=== PATIENT | male | born 1945 | race Caucasian/White ===

== ENCOUNTER 2018-04-02 11:21 | Inpatient (IN) | payer MEDICARE ==
[~2018-04-02] VITALS: Ht 177.8 cm; Wt 79.4 kg
[2018-04-02] VITALS (10 sets, daily range): BP systolic 99–150; BP diastolic 65–101
[2018-04-02] MEDS ORDERED: ASPIRIN 81 MG TAB.CHEW PO ONE (11:30)
--- NOTE | 2018-04-02 11:34 | PHYS DOC ---
Adult General Chief Complaint Chief Complaint: RAPID HEART RATE HPI HPI Patient is a very pleasant 72-year-old male who presents from Dr. Schneider's office for tachycardia. The patient presented for a medication refill and to establish care with Dr. Schneider. He mentioned that he has a history of hyperlipidemia, hypertension, CABG 3, CAD, and reports he is a smoker. In the office it was noted the patient was quite tachycardic and an EKG was performed which showed a heart rate in the 150s. The patient's only complaint at this time is weakness which is generalized. He specifically denies chest pain, shortness of breath, back or abdominal pain, nausea or vomiting, diaphoresis, dizziness or syncope. He is alert and oriented 4, calm, and appears to be no distress at this time. His heart rate is fluctuating between 130 and 170 once on the monitor, and it is noted to be irregular. He takes Toprol, atorvastatin, and aspirin daily. Review of Systems Review of Systems Constitutional: Denies fever or chills [] +generalized weakness Eyes: Denies change in visual acuity, redness, or eye pain [] HENT: Denies nasal congestion or sore throat [] Respiratory: Denies cough or shortness of breath [] Cardiovascular: No additional information not addressed in HPI [] +tachycardia GI: Denies abdominal pain, nausea, vomiting, bloody stools or diarrhea [] : Denies dysuria or hematuria [] Musculoskeletal: Denies back pain or joint pain [] Integument: Denies rash or skin lesions [] Neurologic: Denies headache, focal weakness or sensory changes [] Endocrine: Denies polyuria or polydipsia [] All other systems were reviewed and found to be within normal limits, except as documented in this note. Physical Exam Physical Exam Constitutional: Well developed, well nourished, no acute distress, non-toxic appearance. [] HENT: Normocephalic, atraumatic, bilateral external ears normal, oropharynx moist, no oral exudates, nose normal. [] Eyes: PERRLA, EOMI, conjunctiva normal, no discharge. [] Neck: Normal range of motion, no tenderness, supple, no stridor. [] Cardiovascular: no murmur [] +tachycardia - irregularly irregular Lungs & Thorax: Bilateral breath sounds clear to auscultation [] Abdomen: Bowel sounds normal, soft, no tenderness, no masses, no pulsatile masses. [] Skin: Warm, dry, no erythema, no rash. [] Back: No tenderness, no CVA tenderness. [] Extremities: No tenderness, no cyanosis, no clubbing, ROM intact, no edema. [] Neurologic: Alert and oriented X 3, normal motor function, normal sensory function, no focal deficits noted. [] Psychologic: Affect normal, judgement normal, mood normal. [] Current Patient Data Vital Signs Vital Signs Date Time Temp Pulse Resp B/P (MAP) Pulse Ox O2 Delivery O2 Flow Rate FiO2 04/02/18 11:29 98.1 158 18 96 Room Air EKG EKG Atrial flutter vs fibrillation with rapid ventricular response, rate of 160, right bundle branch block is present, normal axis, no acute ischemic findings, no STEMI Radiology/Procedures Radiology/Procedures CXR (prelim): sternotomy wires, no acute cardiopulmonary process Course & Med Decision Making Course & Med Decision Making Pertinent Labs and Imaging studies reviewed. (See chart for details) Laboratory Tests Test 04/02/18 11:30 White Blood Count 11.2 x10^3/uL Red Blood Count 5.82 x10^6/uL Hemoglobin 18.0 g/dL Hematocrit 54.6 % Mean Corpuscular Volume 94 fL Mean Corpuscular Hemoglobin 31 pg Mean Corpuscular Hemoglobin Concent 33 g/dL Red Cell Distribution Width 14.3 % Platelet Count 334 x10^3/uL Neutrophils (%) (Auto) 51 % Lymphocytes (%) (Auto) 38 % Monocytes (%) (Auto) 10 % Eosinophils (%) (Auto) 1 % Basophils (%) (Auto) 1 % Neutrophils # (Auto) 5.7 x10^3uL Lymphocytes # (Auto) 4.3 x10^3/uL Monocytes # (Auto) 1.1 x10^3/uL Eosinophils # (Auto) 0.1 x10^3/uL Basophils # (Auto) 0.1 x10^3/uL Sodium Level 139 mmol/L Potassium Level 4.3 mmol/L Chloride Level 101 mmol/L Carbon Dioxide Level 32 mmol/L Anion Gap 6 Blood Urea Nitrogen 18 mg/dL Creatinine 1.2 mg/dL Estimated GFR (Cockcroft-Gault) 59.9 BUN/Creatinine Ratio 15 Glucose Level 85 mg/dL Calcium Level 9.2 mg/dL Magnesium Level 2.1 mg/dL Total Bilirubin 0.6 mg/dL Aspartate Amino Transf (AST/SGOT) 23 U/L Alanine Aminotransferase (ALT/SGPT) 26 U/L Alkaline Phosphatase 81 U/L Creatine Kinase 83 U/L Creatine Kinase MB (Mass) 0.9 ng/mL Creatine Kinase MB Relative Index 1.1 % Troponin I Quantitative < 0.017 ng/mL JQ-Sbs-M-Type Natriuretic Peptide 271 pg/mL Total Protein 7.6 g/dL Albumin 3.6 g/dL Albumin/Globulin Ratio 0.9 Current Medications Medications (Trade) Dose Ordered Sig/Rhoda Route PRN Reason Start Time Stop Time Status Last Admin Dose Admin Diltiazem HCl (Cardizem) 15 mg 1X ONCE IVP 04/02/18 11:30 04/02/18 11:31 UNV Aspirin (Children'S Aspirin) 324 mg 1X ONCE PO 04/02/18 11:30 04/02/18 11:30 DC @1202 - Cardizem significantly slow the patient down however his heart rate is still fluctuating between 105 and 125. Cardizem drip ordered. Explained atrial fibrillation at length to the patient and the concerns associated with it. The patient is not symptomatic so it is difficult to ascertain exactly when his atrial fibrillation began. As a result the pt will need an echocardiogram. He prefers to go home but after discussion is willing to be admitted here. Dr. Welsh accepts the ICU admission and agrees with Cardizem gtt and echo. Dragon Disclaimer Dragon Disclaimer This electronic medical record was generated, in whole or in part, using a voice recognition dictation system. Critical Care Time Critical care time was 35 minutes exclusive of procedures. Cardizem bolus and gtt for tachycardia, atrial fib vs flutter Departure Departure: Impression: Primary Impression: Atrial flutter with rapid ventricular response Additional Impression: Hx of CABG Disposition: ADMITTED INPATIENT Admitting Physician: Cyndi Welsh Condition: GUARDED Referrals: NO SCHNEIDER DO (PCP) Problem Qualifiers LILIANA BONILLA DO Apr 02, 2018 11:34
[2018-04-02 11:45] LABS: BASO # 0.1 x10^3/uL (0.0-0.2); BASO % 1 % (0-3); EOS # 0.1 x10^3/uL (0.0-0.7); EOS % 1 % (0-3); HEMATOCRIT 54.6 % (39.0-53.0); LYMPH # 4.3 x10^3/uL (1.0-4.8); LYMPH % 38 % (24-48); MEAN CORPUSCULAR HEMOGLOBIN 31 pg (25-35); MEAN CORPUSCULAR HGB CONC 33 g/dL (31-37); MEAN CORPUSCULAR VOLUME 94 fL (79-100); MONO # 1.1 x10^3/uL (0.0-1.1); MONO % 10 % (0-9); NEUT # 5.7 x10^3uL (1.8-7.7); NEUT % 51 % (31-73); PLATELET COUNT 334 x10^3/uL (140-400); RED BLOOD COUNT 5.82 x10^6/uL (4.30-5.70); RED CELL DISTRIBUTION WIDTH 14.3 % (11.5-14.5); WHITE BLOOD COUNT 11.2 x10^3/uL (4.0-11.0)
[2018-04-02] MEDS ORDERED: dilTIAZem 25 MG/5 ML VIAL IVP ONE (12:00)
[2018-04-02 12:05] LABS: ALBUMIN 3.6 g/dL (3.4-5.0); ALBUMIN/GLOBULIN RATIO 0.9 (1.0-1.7); CALCIUM 9.2 mg/dL (8.5-10.1); CREATININE 1.2 mg/dL (0.7-1.3); GFR 59.9; MAGNESIUM 2.1 mg/dL (1.8-2.4); POTASSIUM 4.3 mmol/L (3.5-5.1); TOTAL BILIRUBIN 0.6 mg/dL (0.2-1.0); TOTAL PROTEIN 7.6 g/dL (6.4-8.2)
--- NOTE | 2018-04-02 12:12 | RAD ---
INDICATION: Tachycardia, weakness. TECHNIQUE: AP upright portable chest radiograph was obtained. No comparison is available. FINDINGS: There is mild left basilar atelectasis and or infiltrate. The lungs otherwise are clear. The heart is not enlarged and there is no heart failure. There are median sternotomy wires. Leads overlie the patient. IMPRESSION: Mild left basilar atelectasis and or infiltrate. Electronically signed by: Stuart Pierson MD (04/02/2018 12:09 PM) [facility]
[2018-04-02] MEDS ORDERED: IV DEXTROSE 5% 100 ML IV ONE (12:24)
[2018-04-02] MEDS ORDERED: dilTIAZem VIAL 125 MG in IV DEXTROSE 5% 100 ML IV PRN (12:30)
[2018-04-02] MEDS ORDERED: ATOR20TA58 PO (13:56)
[2018-04-02] MEDS ORDERED: METO-239 PO (13:56)
[2018-04-02] MEDS ORDERED: ASPI-630 PO (13:56)
[2018-04-02] MEDS ORDERED: DIGOXIN IV 500 MCG/2 ML AMPUL. IV ONE (15:00)
--- NOTE | 2018-04-02 15:21 | EKG ---
[address] [address] Test Date: 2018-04-02 Test Time: 11:36:07 Pat Name: ODELL SMITH Department: Room: Gender: M [employer] Attendant: JESUS ALBERTO : 1945 Requested By: LILIANA BONILLA Order Number: [id number] Reading MD: Measurements Intervals Chana Rate: 160 P: [place]: QRS: -65 QRSD: 120 T: -7 QT: 280 QTc: 459 Interpretive Statements IRREGULAR RHYTHM, NO P-WAVE FOUND ABNORMAL LEFT AXIS DEVIATION R-S TRANSITION ZONE IN V LEADS DISPLACED TO THE RIGHT RVH WITH REPOLARIZATION ABNORMALITY QRS(T) CONTOUR ABNORMALITY CONSIDER ANTEROLATERAL MYOCARDIAL DAMAGE CONSISTENT WITH INFERIOR INFARCT AGE UNDETERMINED ABNORMAL ECG RI6.01 No previous ECG available for comparison
--- NOTE | 2018-04-02 16:55 | CONS ---
DATE OF CONSULTATION: 04/02/2018 REASON FOR CONSULTATION: Atrial fibrillation. HISTORY OF PRESENT ILLNESS: The patient is a 72-year-old man with past medical history as noted below, who apparently was in his usual state of health and presented to the outpatient office for a refill of his medications and was noted to be in significant tachycardia with a heart rate approximately 150 and with an EKG demonstrating atrial fibrillation with RVR. Therefore, he was directed to the ER. In speaking with the patient, he reports over the course of the last 2-3 years, he has had significant fatigue, but no obvious limitations to his lifestyle activity overall. He is retired, mostly has a sedentary lifestyle. Of note, he recently lost his brother approximately 10 days ago. He denies any syncope, orthopnea, PND or lower extremity edema. No palpitations to note. Since admission to the hospital, he has been given diltiazem drip and digoxin IV push bolus and his heart rate has been maintained in the low 90s to low 110s. PAST MEDICAL HISTORY: 1. Coronary artery disease, status post CABG x 3 approximately 20 years ago. 2. Minimal hypertension. 3. Mild dyslipidemia. FAMILY HISTORY: Notable for prior history of DVT and renal failure and arrhythmias requiring pacemakers. SOCIAL HISTORY: The patient is a current smoker. He lives with his . He is retired as noted above. ALLERGIES: CODEINE. CURRENT CARDIAC MEDICATIONS: 1. Toprol-XL 25 mg daily. 2. Aspirin 81 mg daily. 3. Atorvastatin 20 mg daily. REVIEW OF SYSTEMS: Negative for 10 out of 14 systems reviewed, unless otherwise mentioned above in HPI. PHYSICAL EXAMINATION: VITAL SIGNS: Afebrile, respiratory rate 16, pulse 119, blood pressure 129/74, 100% on nasal cannula at 2 liters. GENERAL: He is alert and oriented, no acute distress. HEAD AND NECK: Unremarkable. CARDIAC: Irregularly irregular without any murmurs, rubs or gallops. LUNGS: With mildly decreased breath sounds bilaterally. ABDOMEN: Soft, nontender, nondistended. EXTREMITIES: Without any clubbing, cyanosis or edema. NEUROLOGIC: No focal deficits. MUSCULOSKELETAL: No trauma. DIAGNOSTIC STUDIES: Hemoglobin is 18.0 consistent with smoking, platelets 334, creatinine 1.2, troponin less than 0.017. BNP is only minimally elevated at 271. Chest x-ray demonstrates no acute pathology. Echocardiogram is currently pending. EKG demonstrates atrial fibrillation with RVR with a heart rate of approximately 130. There is a right bundle branch block. IMPRESSION: 1. Presumed new onset cardiomyopathy, although given his time on his symptoms, this could be a fairly longstanding for several months. 2. Coronary artery disease, status post coronary artery bypass graft, currently without angina. 3. Minimal hypertension. 4. Dyslipidemia. RECOMMENDATIONS: 1. I discussed with the patient the pathophysiology of atrial fibrillation and various options of treatment including cardioversion versus medical management. He wishes to pursue medical management in light of this, we will pursue the following options: 1. Continue diltiazem drip overnight and we will change him to an oral dose in the morning. Obtain a stress test in the morning and if this is unremarkable, could then consider antiarrhythmic drug as necessary and then follow up with him on an outpatient basis for consideration of cardioversion if necessary. I had also had a long discussion about the risks, benefits and alternatives to anticoagulation with the patient and he wishes to pursue this. We will find out from his pharmacist which of the anticoagulants have at least copays and we will consider starting on this prior to discharge. For now, continue Lovenox b.i.d. therapeutic dosing. Thank you for this consultation. ROSELINE MENENDEZ MD DR: OTF/nts JOB#: [id number] / [id number]
[2018-04-02] MEDS: APIXABAN 5 MG TABLET. PO SCH (20:37)
[2018-04-03] VITALS (8 sets, daily range): BP systolic 97–134; BP diastolic 56–84
[2018-04-03] MEDS: APIXABAN 5 MG TABLET. PO SCH (07:18)
--- NOTE | 2018-04-03 07:31 | CARD ---
MR#: [id number] Date of Study: 04/02/2018 Ordering Physician: LILIANA BONILLA, Referring Physician: ROJELIO MELLO, Tech: FIORELLA Forte APPROVED REPORT EXAM: Two-dimensional and M-mode echocardiogram with Doppler and color Doppler. Other Information Quality : Average INDICATION Atrial Fibrillation 2D DIMENSIONS RVDd4.0 (2.9-3.5cm)Left Atrium(2D)4.1 (1.6-4.0cm) IVSd0.7 (0.7-1.1cm)Aortic Root(2D)3.8 (2.0-3.7cm) LVDd4.0 (3.9-5.9cm)LVOT Diameter1.9 (1.8-2.4cm) IVSs1.1 (0.8-1.2cm)LVDs1.7 (2.5-4.0cm) FS (%) 33.0 %SV61.1 ml LVEF(%)70.0 (>50%) Aortic Valve LVOT Peak Joshua.94.0cm/s Tricuspid Valve TR P. Txfaqods689tw/sRAP [id number] TR Peak Gr.09ppAyCLLB65kdHs LEFT VENTRICLE The left ventricle is normal size. There is normal left ventricular wall thickness. The left ventricl e systolic function is normal. The Ejection Fraction is 65-70%. There is normal LV segmental wall mot ion. RIGHT VENTRICLE The right ventricle is normal size. The right ventricle is mildly hypertrophied. The right ventricula r systolic function is normal. ATRIA The left atrium is mildly dilated. The right atrium is mildly dilated. The interatrial septum is inta ct with no evidence for an atrial septal defect or patent foramen ovale as noted on 2-D or Doppler im aging. AORTIC VALVE The aortic valve is trileaflet. The aortic valve is mildly to moderately calcified. Doppler and Color Flow revealed no significant aortic regurgitation. There is no significant aortic valvular stenosis. MITRAL VALVE The mitral valve is normal in structure and function. There is no mitral valve stenosis. Doppler and Color-flow revealed trace mitral regurgitation. TRICUSPID VALVE The tricuspid valve is normal in structure and function. Doppler and Color Flow revealed mild tricusp id regurgitation. There is mild pulmonary hypertension. The PASP is 43mmHg. There is no tricuspid fara ve stenosis. PULMONIC VALVE The pulmonic valve is not well visualized. Doppler and Color Flow revealed trace pulmonic valvular re gurgitation. There is no pulmonic valvular stenosis. GREAT VESSELS The aortic root is mildly enlarged. The IVC is normal in size and collapses >50% with inspiration. PERICARDIAL EFFUSION There is no pleural effusion. There is no evidence of significant pericardial effusion. Critical Notification Critical Value: No <Conclusion> The left ventricle systolic function is normal. The Ejection Fraction is 65-70%. There is normal LV segmental wall motion. Trace mitral regurgitation. Mild tricuspid regurgitation. There is mild pulmonary hypertension. The PASP is 43mmHg. There is no evidence of significant pericardial effusion. Signed by : Eric Gomez, Electronically Approved : 04/03/2018 07:29:52
[2018-04-03] MEDS ORDERED: REGADENOSON 0.4 MG/5 ML DISP.SYRIN. IV ONE (11:10)
--- NOTE | 2018-04-03 14:26 | RAD ---
MR#: [id number] Date of Study: 04/03/2018 Ordering Physician: ROSELINE MENENDEZ, Referring Physician: REGINALDO ABARCA Tech: BOB Zambrano ARRT (R) (N) APPROVED REPORT Test Type: Pharmacological Stress Nurse/Tech: BOB Zambrano ARRT (R) (N) Test Indications: A-FIB, CAD Cardiac History: See [employer] EMR NKDA Medications: See Electronic Medical Record Medical History: See Electronic Medical Record Resting Heart Rate: 66 bpm Resting Blood Pressure: 134/77mmHg Pretest Chest Pain: None Nurse/Tech Notes Consent: The procedure was explained to the patient in lay terms. Informed consent was witnessed. Gio eout was entered into [employer]. History and Stress Test performed by BOB Zambrano ARRT (R) (N) Pharm. Details Pharmacologic stress testing was performed using 0.4mg per 5ml of regadenoson given intravenously ove r 7-10 seconds. Stress Symptoms Nausea POST EXERCISE Reason for Termination: Infusion complete Max HR: 101 bpm Exercise duration: 6 min:sec, Stage Max Blood Pressure: 148/75mmHg Blood Pressure response to exercise: Normal blood pressure response during stress. Chest Pain: No. INTERPRETATION Stress EKG Conclusion: Baseline EKG showed sinus rhythm with RBBB. Non diagnostic changes at peak st ress. No arrhythmias. Imaging Protocol IMAGE PROTOCOL: Rest Tc-99m/stress Tc-99m 1 day Rest: Stress: Viability: Radiopharm.Tc99m KtzmubkqpKw64t Sestamibi Upms11bOm 34mCi Img Date 04/03/2018 04/03/2018 Inj-Img Yfnw81qrm. 45min. Rest Admin Site:IV - Right AntecubitalAdministrator: BOB Zambrano ARRT (R)(N) Stress Admin Site: IV - Right AntecubitalAdministrator: BOB Zambrano ARRT (R)(N) STRESS DATA End Diast. Vol.65.0mlAv. Heart Rate80.0bpm LVEDV index BSA1.0mlCardiac Output0.1L/min End Syst. Vol.11.0mlCO Index BSA4.3L/min LVESV index BSA0.0mlMyocardial Mass99.0g Eject. Qhidxuvp68.0% Stress Rates Pk. Fill Rate4.22EDV/secLVtime Pk. Fill 207.79msec Pk. Empty Rate6.05ESV/secLVtime Pk. Nudfz912.43msec 1/3 Pk. Fill0.56EDV/sec Stress Scores Regional WT2.00Summed WT18.00 Regional WM0.00Summed WM0.00 Study quality was good. Left Ventricular size was Normal at Rest and Stress. Lung uptake was Normal. Left Ventricular ejection fraction is 83%. The rest and stress images show normal perfusion, normal contraction and thickening. LV Perf. Quant 17 Seg. SSS0.00 17 Seg. SRS0.00 17 Seg. SDS0.00 Stress Defect Extent (% LAD)0.00Rest Defect Extent (% LAD)0.00Rev. Defect Extent (% LAD)0.00 Stress Defect Extent (% LCX) 0.00Rest Defect Extent (% LCX)0.00Rev. Defect Extent (% LCX)0.00 Stress Defect Extent (% RCA)0.00Rest Defect Extent (% RCA)0.00Rev. Defect Extent (% RCA)0.00 Stress Defect Extent (% DEMETRIA)0.00Rest Defect Extent (% DEMETRIA)0.00Rev. Defect Extent (% DEMETRIA)0.00 Conclusion 1. Regadenoson cardioisotope stress test did not show any evidence of ischemia or infarct. 2. Normal left ventricular systolic function with ejection fraction calculated at 83%. 3. Low risk for cardiac events. Signed by : Eric Gomez, Electronically Approved : 04/03/2018 14:26:13
--- NOTE | 2018-04-03 15:01 | PDOC ---
PROVIDER NOTE PROVIDER NOTE PROVIDER NOTE Stress MPI negative home on diltiazem, eliquis and atorvastatin will mail event monitor. f/u in 4-6 weeks. thanks ROSELINE MENENDEZ MD Apr 03, 2018 15:01
[2018-04-03] MEDS ORDERED: DILT120C80 PO (15:10)
[2018-04-03] MEDS ORDERED: APIX5TAB3 PO (15:10)
--- NOTE | 2018-04-03 16:17 | HP ---
ADMIT DATE: 04/02/2018 HISTORY OF PRESENT ILLNESS: The patient is a 73-year-old male patient who was seen at Dr. Schneider's office to have a refill for his medication and while in the office, it was noted that the patient was quite tachycardic and had an EKG done, which showed that he was in atrial fibrillation with rapid ventricular response. His only complaint was generalized weakness. He specifically denied any chest pain or shortness of breath. Denied any dizziness, lightheadedness, or vertigo and therefore, he was sent to the Emergency Room where he was found to be in atrial fibrillation with a ventricular response with fluctuating heart rate between 130-170 on his monitor. In the Emergency Room, he apparently was treated with IV Cardizem and was eventually admitted to Intensive Care Unit to continue with the Cardizem drip and to consult the Cardiology team. PAST MEDICAL HISTORY: Significant for hypertension, hyperlipidemia, coronary artery disease, status post CABG about 18 years ago. He apparently had a stress test done about 10 years ago, it was negative. An echocardiogram 4 years ago was also negative. He is known to have history of diverticulosis and diverticulitis and also symptoms suggestive of benign prostatic hypertrophy. PAST SURGICAL HISTORY: Significant for left heart catheterization and coronary artery bypass graft surgery. Chest tube placement for what seemed to be a spontaneous pneumothorax. He has bilateral inguinal hernia repair, appendectomy. He underwent esophagogastroduodenoscopy, screening colonoscopy with polypectomy. ALLERGIES: HE IS ALLERGIC TO CODEINE. MEDICATIONS: He is normally on atorvastatin calcium 20 mg once a day and metoprolol as well as atorvastatin and aspirin. FAMILY HISTORY: He has one brother who about 3 weeks ago because of complication of end-stage renal disease, diabetes and had coronary artery disease. His father at the age of 70 because of subdural hematoma. Mother in her 60s because of coronary artery disease and pulmonary embolism. SOCIAL HISTORY: He is , has no children. He smokes half a pack a day, does not drink alcohol or do recreational drugs. He is retired from a [employer]. REVIEW OF SYSTEMS: The patient denied any blurring of vision, cataract, glaucoma or macular degeneration. Denied any earache, tinnitus or sensorineural deafness. Denied any nosebleeds, stuffy nose or postnasal drip. Denied any sore throat, sore tongue, toothache, hoarseness of voice or difficulty swallowing. Denied any nausea, vomiting, diarrhea or constipation. Denied any hematemesis, melena or hematochezia. Denied any dysuria, frequency or hematuria. Denied any chest pain, shortness of breath, orthopnea, paroxysmal nocturnal dyspnea. Denied any cough, phlegm or hemoptysis. Denied any dizziness, lightheadedness, or vertigo. PHYSICAL EXAMINATION: GENERAL: On arrival to the Emergency Room, he looked well and was clearly in no apparent respiratory distress. VITAL SIGNS: His heart rate was 158, blood pressure was 124/78, temperature was 98.1, respiratory rate was 18 and oxygen saturation was 96%. HEENT: Showed normocephalic, atraumatic. NECK: Supple. HEART: Showed normal first and second sounds. No gallop, rub or murmur. CHEST: Clear to auscultation. No crepitation or rhonchi. ABDOMEN: Distended, soft, nontender. No guarding or rigidity. No organomegaly. Hernial orifice intact and bowel sounds normal. NEUROLOGIC: He was awake, alert, responding appropriately. Cranial nerves intact. EXTREMITIES: She moves extremities without difficulty, ambulates without assistance or assistive devices. LABORATORY DATA: His lab work showed a serum sodium of 139, potassium 4.3, chloride 101, bicarbonate 32, anion gap of 6, BUN 18, creatinine 1.2, estimated GFR was 60 mL per minute, his glucose was 85, calcium was 9.2, magnesium was 2.1. Total bilirubin, AST, ALT, alkaline phosphatase were normal. His first set of cardiac enzymes showed troponin to be less than 0.017. Beta-natriuretic peptide was 271. Total protein was 7.6, albumin 3.6. TSH was 1.791. His white cell count was 11,200, hemoglobin 18, hematocrit 54, MCV was 94 and platelet count of 334,000. RADIOLOGICAL DATA: He has had a chest x-ray done, which showed that there is mild left basilar atelectasis and/or infiltrate. The lungs, otherwise, are clear. The heart is not enlarged and there is no heart failure. There are median sternotomy wires, leads applied to the patient. PLAN: Admitted to continue with the Cardizem drip. The Cardiology team was consulted. INCOMPLETE DICTATION ROJELIO MELLO MD DR: Rosemary JOB#: [id number] / [id number]
--- NOTE | 2018-04-03 17:13 | DS ---
DATE OF DISCHARGE: 04/03/2018 HISTORY OF PRESENT ILLNESS: The patient was admitted yesterday with a new onset of atrial fibrillation that was discovered incidentally yesterday when he went to refill his medication at his primary care physician. He was in significant tachycardia with a heart rate of approximately 150 with an EKG demonstrating atrial fibrillation with RVR. He was sent to the ER and the patient was given a Cardizem bolus and Cardizem drip and was admitted to ICU where he was continued on the Cardizem drip and he converted around 3:00 in the morning to sinus rhythm. He was seen in consultation by the library media specialist. He was started on Eliquis and was switched to oral Cardizem. He underwent a nuclear stress test that did not show any evidence of ischemia or infarct, normal left ventricular systolic function, ejection fraction calculated at 83%. This is a low risk for cardiac event and the patient was discharged home to continue on Cardizem CD 120 mg once a day, Eliquis 5 mg twice a day together with atorvastatin 10 mg at bedtime as well as aspirin 81 mg once a day. PHYSICAL EXAMINATION: GENERAL: When I saw him today afternoon, he looked well and was clearly in no apparent respiratory distress, slightly pale, but no jaundice, cyanosis, lymphadenopathy or thyromegaly. No jugular venous distension. No lower limb edema. VITAL SIGNS: His heart rate was 60, blood pressure 120/84, temperature was 98.1, respiratory rate was 16, and oxygen saturation was 96% on room air. HEAD, EYES, EARS, NOSE AND THROAT: Normocephalic, atraumatic. NECK: Supple. HEART: Showed normal first and second heart sounds with no gallop, rub or murmur. CHEST: Clear to auscultation. No crepitation or rhonchi. ABDOMEN: Distended, soft, nontender. NEUROLOGIC: He is awake, alert, responding appropriately. Cranial nerves intact. EXTREMITIES: She moves extremities without difficulty, ambulates without assistance or assistive devices. MEDICATIONS: He was discharged home to continue on Cardizem CD 120 mg once a day, apixaban 5 mg twice a day, atorvastatin calcium 20 mg at bedtime, and a baby aspirin 81 mg once a day. FINAL DISCHARGE DIAGNOSES: New onset of atrial fibrillation with rapid ventricular response, hypertension, hyperlipidemia, coronary artery disease status post CABG 18 years ago and questionable benign prostatic hypertrophy. ROJELIO MELLO MD DR: NOAH/kelly JOB#: [id number] / [id number]
== END 2018-04-03 15:00 | disposition home or self-care (01) | DRG 310 ==
LOC: ER 11:21 → ICU 12:08 → ER 13:12
PROVIDERS: ADMIT Internal Medicine; ATTEND Internal Medicine
DX: I48.91 Unspecified atrial fibrillation (principal); E78.5 Hyperlipidemia, unspecified; F17.210 Nicotine dependence, cigarettes, uncomplicated; I10 Essential (primary) hypertension; I25.10 Atherosclerotic heart disease of native coronary artery without angina pectoris; I42.9 Cardiomyopathy, unspecified; N40.0 Benign prostatic hyperplasia without lower urinary tract symptoms; I45.10 Unspecified right bundle-branch block; I48.92 Unspecified atrial flutter; Z79.899 Other long term (current) drug therapy; Z82.49 Family history of ischemic heart disease and other diseases of the circulatory system; Z83.3 Family history of diabetes mellitus; Z95.1 Presence of aortocoronary bypass graft; Z88.8 Allergy status to other drugs, medicaments and biological substances
CPT/HCPCS: 36415; 71045; 78452; 80053; 82553; 83735; 83880; 84443; 84484; 85025; 87641; 93005; 93017; 93306; 96365; 96374; 96375; 96376; A9500; J1160; J2785; J3490; 99291-25

== ENCOUNTER 2021-07-25 18:35 | Emergency (ER) | payer MEDICARE ==
[~2021-07-25] VITALS: Ht 177.8 cm; Wt 78.9 kg
[~2021-07-25 18:35] MED LIST: APIX5TAB3 PO; ASPI-630 PO; ATOR20TA58 PO; DILT120C99 PO; METO-239 PO
--- NOTE | 2021-07-25 19:19 | PHYS DOC ---
Past History Past Medical History: High Cholesterol, Hypertension Past Surgical History: Appendectomy, Coronary Bypass Surgery, Other Additional Past Surgical Histo: hernia repair Alcohol Use: Rarely Drug Use: None Adult General Chief Complaint Chief Complaint: MULTIPLE COMPLAINTS [facility] HPI Patient is a 76-year-old male presenting for generalized abdominal pain. Reports onset was 2 PM this afternoon without any known inciting event, trauma, major in change in health, change in medication, recent sick contact or travel. Nothing known makes better, p.o. intake makes worse. Reports pain is generalized and often stabbing in left lower quadrant region. Timing of symptoms has been constant and worsening since onset. Reports he ate geetha sausages and cantaloupe for breakfast approximately 7 hours prior. Admits prior history of appendectomy and diverticulitis without any other intra-abdominal abnormalities. Reports he has had no fever no urinary and/or bowel changes per baseline. He has been taking all medications as prescribed without compliance issues. Has history of prior CABG and currently on Eliquis for atrial fibrillation, has high blood pressure and high cholesterol with prior sup erficial skin cancers. Review of Systems Review of Systems Fourteen body systems of review of systems have been reviewed. See HPI for pertinent positives and negative responses, other church all other systems are negative, non-pertinent or non-contributory Allergies Allergies Allergies Coded Allergies Type Severity Reaction Last Updated Verified codeine Allergy Intermediate 04/02/18 Yes Physical Exam Physical Exam Constitutional: Age-appropriate, pale, in moderate distress due to pain, nontoxic on initial presentation HENT: Normocephalic, atraumatic, bilateral external ears normal, oropharynx dry, no oral exudates, nose normal. Eyes: PERRLA, EOMI, conjunctiva normal, no discharge. Neck: Normal range of motion, no tenderness, supple, no stridor. Cardiovascular: Heart rate regular, irregular rhythm, no murmurs rubs or gallops Lungs & Thorax: Tachypneic exhibiting increased work of breathing but otherwise clear lungs to auscultation Abdomen: Bowel sounds normal, soft, generalized abdominal tenderness near um bilicus and left lower quadrant, guarding is present, no rebound, no masses, no obvious palpable mass Skin: Warm, dry, no erythema, no rash. Pale Back: No tenderness, no CVA tenderness. Extremities: No tenderness, no cyanosis, no clubbing, ROM intact, no edema. Neurologic: Alert and oriented X 3, normal motor & sensory function, no focal deficits noted. Psychologic: Anxious affect and mood Current Patient Data Vital Signs Vital Signs Date Time Temp Pulse Resp B/P (MAP) Pulse Ox O2 Delivery O2 Flow Rate FiO2 07/25/21 18:40 97.8 64 18 103/76 (85) 97 Lab Results Laboratory Tests Test 07/25/21 18:48 White Blood Count 12.0 x10^3/uL Red Blood Count 5.02 x10^6/uL Hemoglobin 15.8 g/dL Hematocrit 48.0 % Mean Corpuscular Volume 96 fL Mean Corpuscular Hemoglobin 32 pg Mean Corpuscular Hemoglobin Concent 33 g/dL Red Cell Distribution Width 14.1 % Platelet Count 296 x10^3/uL Neutrophils (%) (Auto) 70 % Lymphocytes (%) (Auto) 24 % Monocytes (%) (Auto) 5 % Eosinophils (%) (Auto) 0 % Basophils (%) (Auto) 0 % Neutrophils # (Auto) 8.4 x10^3uL Lymphocytes # (Auto) 2.9 x10^3/uL Monocytes # (Auto) 0.6 x10^3/uL Eosinophils # (Auto) 0.0 x10^3/uL Basophils # (Auto) 0.0 x10^3/uL Sodium Level 137 mmol/L Potassium Level 4.0 mmol/L Chloride Level 101 mmol/L Carbon Dioxide Level 29 mmol/L Anion Gap 7 Blood Urea Nitrogen 14 mg/dL Creatinine 1.0 mg/dL Estimated GFR (Cockcroft-Gault) 73.0 BUN/Creatinine Ratio 14 Glucose Level 132 mg/dL Lactic Acid Level 1.6 mmol/L Calcium Level 9.1 mg/dL Total Bilirubin 0.5 mg/dL Aspartate Amino Transf (AST/SGOT) 20 U/L Alanine Aminotransferase (ALT/SGPT) 27 U/L Alkaline Phosphatase 93 U/L Troponin I High Sensitivity 11 ng/L Total Protein 7.4 g/dL Albumin 3.8 g/dL Albumin/Globulin Ratio 1.1 Current Medications Medications (Trade) Dose Ordered Sig/Rhoda Route PRN Reason Start Time Stop Time Status Last Admin Dose Admin Ondansetron HCl (Zofran) 4 mg 1X ONCE IVP 07/25/21 19:30 07/25/21 19:31 DC 07/25/21 19:26 Fentanyl Citrate (Fentanyl 2ml Vial) 50 mcg 1X ONCE IVP 07/25/21 19:30 07/25/21 19:31 DC 07/25/21 19:27 Iohexol (Omnipaque 300 Mg/ml) 75 ml 1X ONCE IV 07/25/21 19:30 07/25/21 19:31 DC 07/25/21 20:09 Sodium Chloride 1,000 ml @ 0 mls/hr 1X ONCE IV 07/25/21 19:30 07/25/21 19:31 DC 07/25/21 19:29 Info (Do NOT chart on this entry -- for MONITORING) 1 each PRN DAILY PRN MC SEE COMMENTS 07/25/21 19:45 07/27/21 19:44 Sodium Chloride 1,000 ml @ 1,000 mls/hr 1X ONCE IV 07/25/21 20:00 07/25/21 20:59 07/25/21 19:55 Fentanyl Citrate (Fentanyl 2ml Vial) 50 mcg 1X ONCE IVP 07/25/21 20:45 07/25/21 20:46 DC 07/25/21 20:00 Fentanyl Citrate (Fentanyl 2ml Vial) 75 mcg 1X ONCE IVP 07/25/21 20:45 07/25/21 20:46 DC 07/25/21 20:15 Fentanyl Citrate (Fentanyl 2ml Vial) 75 mcg 1X ONCE IVP 07/25/21 21:30 07/25/21 21:31 Sodium Chloride 1,000 ml @ 1,000 mls/hr 1X ONCE IV 07/25/21 21:30 07/25/21 22:29 Sodium Chloride 1,000 ml @ 1,000 mls/hr 1X ONCE IV 07/25/21 21:00 07/25/21 21:59 EKG EKG EKG ordered and interpreted by myself at 1928 hrs. as sinus rhythm at 64 bpm, prolonged QRS at 148 and prolonged QTC at 485 otherwise unremarkable intervals, left axis deviation, no STEMI Radiology/Procedures Radiology/Procedures Exam: Chest one view INDICATION: Sepsis TECHNIQUE: Frontal view which Comparisons: 04/02/2018 FINDINGS: The cardiomediastinal silhouette and pulmonary vessels are within normal limits. Subtle patchy bilateral airspace disease. No pleural effusion. IMPRESSION: Subtle patchy bilateral airspace disease. Electronically signed by: Lewis Craig MD (07/25/2021 9:03 PM) [facility] ////////////////////////////// Study: CT abdomen/pelvis with intravenous contrast Indication: Abdominal pain. Comparison: None. Technique: Helical CT imaging performed of the abdomen and pelvis after the in travenous administration of 74 cc contrast. Sagittal and coronal reformats were obtained. One or more of the following individualized dose reduction techniques were utilized for this examination: 1. Automated exposure control 2. Adjustment of the mA and/or kV according to patient size 3. Use of iterative reconstruction technique. Findings: Prominent infrarenal abdominal aortic aneurysm extending over a craniocaudal dimension of 13 cm and measuring up to 8.7 cm transverse by 9.3 cm AP. The aneurysm has ruptured with extravasation of contrast extending from the aneurysm sac along its anterior/left lateral margin, image 32 series 3 and with prominent volume retroperitoneal hemorrhage along the left aspect of the abdomen to include hyperacute blood products seen along the anterior margin of the left psoas. The left kidney is displaced anterior/lateral by the hemorrhage. Hepatic cystic focus measuring up to 3.2 cm. Unremarkable gallbladder. Homogeneous attenuation of the pancreas. The spleen is within normal limits for size. No adrenal gland mass. Left renal cyst with a presumed small focus of mineralization along its medial margin. The cyst measures simple density and up to 3.5 x 2.9 x 3.2 cm. There is a small area of apparent renal cortical hypoattenuation on the left which could be contiguous with the cyst abd is favored less likely a small cortical infarct. Unremarkable right kidney. No hydronephrosis. The left ureter is not able to be delineated along the majority of its course from retroperitoneal hemorrhage. Mild distention of the urinary bladder and prominence of the prostate gland. Colonic diverticulosis. Anterior displacement of the descending colon. Nonobstructed small bowel. No gastric wall emphysema. Extensive calcified and noncalcified atheromatous plaque estimated 50 percent stenosis of the left common femoral artery and 50 percent or less stenosis of the right common femoral artery. Multifocal degenerative/chronic osseous findings. Sacral Tarlov cyst. No focally aggressive abnormality. Emphysematous changes at the lower lungs. Impression: Acutely ruptured infrarenal abdominal aortic aneurysm with prominent volume retroperitoneal hemorrhage centered to the left of midline with resultant mass effect on the left kidney and adjacent intra-abdominal contents. The aneurysm sac is measured at up to 8.7 cm transverse by 9.3 cm AP by 13 cm craniocaudal. Background extensive calcified and noncalcified atheromatous plaque. Small area of renal cortical hypoattenuation on the left which may be contiguous with a renal cyst with a small renal cortical infarct felt less likely. No additional acute abnormality identified throughout the abdomen or pelvis. FOR INTERNAL CODING PURPOSES Critical result: Findings discussed with Dr. Ramirez on 07/25/2021 at 8:18 PM. RESULT CODE: (C) Electronically signed by: OCTAVIO GANN MD (07/25/2021 8:40 PM) [facility] Heart Score C/O Chest Pain: No HEART Score for Chest Pain: HEART Score for Chest Pain Response (Comments) Value History Slighlty/Non-Suspicious 0 ECG Nonspecific Repolarizatio 1 Age > 65 2 Risk Factors 1 or 2 Risk Factors 1 Troponin < Normal Limit 0 Total 4 Risk Factors: Risk Factors: DM, Current or recent (<one month) smoker, HTN, HLP, family history of CAD, obesity. Risk Scores: Risk Factors: DM, Current or recent (<one month) smoker, HTN, HLP, family history of CAD, obesity. Course & Med Decision Making Course & Med Decision Making Airway patent, breathing labored, x2 peripheral IVs and vitals obtained and nonconcerning on arrival HPI physical exam and comprehensive ER work-up obtained Shortly after obtaining labs, patient presentation swiftly declined. Reported increased abdominal pain with findings of tachypnea, hypoxic, hypotension and pale appearing patient who became diaphoretic with findings consistent of an acute abdomen Additional peripheral IV inserted, an additional 1 L IV normal saline administered, 2 L supplemental oxygen via nasal cannula applied, and CT abdomen pelvis obtained stat concerning for ruptured AAA Immediate efforts were made to contact vascular surgery, case was reviewed with Dr. Cuadra at [facility] who recommended emergent transfer to their facility for surgical intervention Area ambulance contacted but granted transportation already onsite with quicker ETA, decision was made to transfer emergently via EMS to defer any unnecessary wait time of patient going to OR X3 L IV normal saline administered with an additional x2 units packed red blood cells started prior to EMS transfer in critical condition given diagnosis although patient remained AAO x3, GCS 15 and hemodynamically stable Critical Care Time This patient required critical care. Due to the fact that the patient required a significant amount of one on one physician - patient contact time, ordering and review of studies, arranging urgent treatment with development of a management plan, evaluation of patients response to treatment with frequent reassessments, and discussions with other providers this patient required 35 minutes of critical care time. Critical care time was indicated due to the inherent instability and/or potential for instability in this patient. The critical care time that is allocated to this patient is above and beyond any time spent on any other billable procedures performed on this patient. Dragon Disclaimer Dragon Disclaimer This electronic medical record was generated, in whole or in part, using a voice recognition dictation system. Departure Departure: Impression: Primary Impression: Ruptured abdominal aortic aneurysm (AAA) Additional Impression: intermediate designer current use of anticoagulant therapy Disposition: 02 [facility] ([facility]) Admitting Physician: Other (dr cuadra) Condition: CRITICAL Referrals: FELA DAVIDSON MD (PCP) Problem Qualifiers SOUTH RAMIREZ DO Jul 25, 2021 19:19
[2021-07-25] MEDS ORDERED: ONDANSETRON PF 4 MG/2 ML VIAL. IVP ONE (19:30)
[2021-07-25] MEDS ORDERED: IV NORMAL SALINE 500ML 1,000 ML IV ONE (19:30)
[2021-07-25] MEDS ORDERED: IOHEXOL 300 MG/ML 75 ML VIAL. IV ONE (19:30)
[2021-07-25 19:35] LABS: BASO % 0 % (0-3); EOS % 0 % (0-3); HEMOGLOBIN 15.8 g/dL (13.0-17.5); LYMPH # 2.9 x10^3/uL (1.0-4.8); LYMPH % 24 % (24-48); MEAN CORPUSCULAR HEMOGLOBIN 32 pg (25-35); MEAN CORPUSCULAR HGB CONC 33 g/dL (31-37); MEAN CORPUSCULAR VOLUME 96 fL (79-100); MONO # 0.6 x10^3/uL (0.0-1.1); MONO % 5 % (0-9); NEUT # 8.4 x10^3uL (1.8-7.7); NEUT % 70 % (31-73); PLATELET COUNT 296 x10^3/uL (140-400); RED BLOOD COUNT 5.02 x10^6/uL (4.30-5.70); RED CELL DISTRIBUTION WIDTH 14.1 % (11.5-14.5)
[2021-07-25] MEDS ORDERED: CONTRAST GIVEN. MC PRN (19:45)
[2021-07-25 19:53] LABS: CALCIUM 9.1 mg/dL (8.5-10.1)
[2021-07-25 19:57] LABS: ALBUMIN 3.8 g/dL (3.4-5.0); ALBUMIN/GLOBULIN RATIO 1.1 (1.0-1.7); TOTAL BILIRUBIN 0.5 mg/dL (0.2-1.0); TOTAL PROTEIN 7.4 g/dL (6.4-8.2)
[2021-07-25] MEDS ORDERED: IV NORMAL SALINE 1,000ML 1,000 ML IV ONE ×3 (20:00→21:30)
--- NOTE | 2021-07-25 20:43 | RAD ---
Study: CT abdomen/pelvis with intravenous contrast Indication: Abdominal pain. Comparison: None. Technique: Helical CT imaging performed of the abdomen and pelvis after the intravenous administratio n of 74 cc contrast. Sagittal and coronal reformats were obtained. One or more of the following individualized dose reduction techniques were utilized for this examinat ion: 1. Automated exposure control 2. Adjustment of the mA and/or kV according to patient size 3. Use of iterative reconstruction technique. Findings: Prominent infrarenal abdominal aortic aneurysm extending over a craniocaudal dimension of 13 cm and m easuring up to 8.7 cm transverse by 9.3 cm AP. The aneurysm has ruptured with extravasation of contra st extending from the aneurysm sac along its anterior/left lateral margin, image 32 series 3 and with prominent volume retroperitoneal hemorrhage along the left aspect of the abdomen to include hyperacu te blood products seen along the anterior margin of the left psoas. The left kidney is displaced ante rior/lateral by the hemorrhage. Hepatic cystic focus measuring up to 3.2 cm. Unremarkable gallbladder. Homogeneous attenuation of the pancreas. The spleen is within normal limits for size. No adrenal gland mass. Left renal cyst with a presumed small focus of mineralization along its medial margin. The cyst measures simple density and up to 3.5 x 2.9 x 3.2 cm. There is a small area of apparent renal cortical hypoattenuation on the le ft which could be contiguous with the cyst abd is favored less likely a small cortical infarct. Unrem arkable right kidney. No hydronephrosis. The left ureter is not able to be delineated along the major ity of its course from retroperitoneal hemorrhage. Mild distention of the urinary bladder and promine nce of the prostate gland. Colonic diverticulosis. Anterior displacement of the descending colon. Nonobstructed small bowel. No gastric wall emphysema. Extensive calcified and noncalcified atheromatous plaque estimated 50 percent stenosis of the left co mmon femoral artery and 50 percent or less stenosis of the right common femoral artery. Multifocal degenerative/chronic osseous findings. Sacral Tarlov cyst. No focally aggressive abnormali ty. Emphysematous changes at the lower lungs. Impression: Acutely ruptured infrarenal abdominal aortic aneurysm with prominent volume retroperitoneal hemorrhag e centered to the left of midline with resultant mass effect on the left kidney and adjacent intra-ab dominal contents. The aneurysm sac is measured at up to 8.7 cm transverse by 9.3 cm AP by 13 cm crani ocaudal. Background extensive calcified and noncalcified atheromatous plaque. Small area of renal cor tical hypoattenuation on the left which may be contiguous with a renal cyst with a small renal cortic al infarct felt less likely. No additional acute abnormality identified throughout the abdomen or pel vis. FOR INTERNAL CODING PURPOSES Critical result: Findings discussed with Dr. Ortiz on 07/25/2021 at 8:18 PM. RESULT CODE: (C) Electronically signed by: OCTAVIO GANN MD (07/25/2021 8:40 PM) [facility]
[2021-07-25 20:45] VITALS: BP 99/60
--- NOTE | 2021-07-25 21:05 | RAD ---
Exam: Chest one view INDICATION: Sepsis TECHNIQUE: Frontal view which Comparisons: 04/02/2018 FINDINGS: The cardiomediastinal silhouette and pulmonary vessels are within normal limits. Subtle patchy bilateral airspace disease. No pleural effusion. IMPRESSION: Subtle patchy bilateral airspace disease. Electronically signed by: Lewis Craig MD (07/25/2021 9:03 PM) UNIQUE
--- NOTE | 2021-07-26 01:41 | EKG ---
[address] [address] Test Date: 2021-07-25 Test Time: 19:25:45 Pat Name: ODELL SMITH Department: Room: Gender: M Top Stitcher: CYRIL : 1945 Requested By: SOUTH RAMIREZ Order Number: [id number] Reading MD: Brad Chinchilla MD Measurements Intervals [place] Rate: 64 P: 58 HI: 180 QRS: -42 QRSD: 148 T: -32 QT: 466 QTc: 485 Interpretive Statements SINUS RHYTHM LEFT ATRIAL ABNORMALITY ABNORMAL LEFT AXIS DEVIATION LEFT ANTERIOR FASCICULAR BLOCK NON SPECIFIC INTRAVENTRICULAR BLOCK RVH WITH REPOLARIZATION ABNORMALITY ABNORMAL ECG Electronically Signed On 07-30-2021 14:09:13 [employer] by Brad Chinchilla MD
== END 2021-07-25 20:55 | disposition short-term general hospital (02) ==
LOC: ER 18:35
DX: I71.3 Abdominal aortic aneurysm, ruptured (principal); Z79.01 Long term (current) use of anticoagulants; E78.00 Pure hypercholesterolemia, unspecified; I10 Essential (primary) hypertension; I48.91 Unspecified atrial fibrillation; Z20.822 Contact with and (suspected) exposure to COVID-19; Z95.1 Presence of aortocoronary bypass graft; Z88.5 Allergy status to narcotic agent
CPT/HCPCS: 36415; 71045; 74177; 80053; 83605; 84484; 85025; 85384; 86850; 86900; 86901; 86920; 87040; 87426; 93005; 96361; 96374; 96375; 96376; 99285; C9803; J2405; J3010; J7030; J7040; P9016; Q9967; U0003